=== PATIENT | male | born 1980 | race Two or more races ===

== ENCOUNTER 2025-06-14 05:13 | Inpatient (IN) | payer OTHER ==
[~2025-06-14] VITALS: Ht 177.8 cm; Wt 86.0 kg
--- NOTE | 2025-06-14 06:47 | ED.PDOC ---
SOB-HPI HPI Comments 44 year old male with no PMHx presents to the ED with a chief complaint of shortness of breath onset last night. Patient states he began experiencing shortness of breath, causing back pain. He noticed back pain worsened with deep breath, rates pain 7/10, slight improvement during assessment. Denies nausea, vomiting, fever, chills, chest pain, dizziness, headache, blurred vision, leg swelling, numbness/tingling, cough, cold, congestion, sore throat. No other symptoms or modifying factors present at this time. Chief Complaint: Shortness of Breath Time Seen by MD: 06:35 Reviewed notes: Medications, Allergies Information Source: Patient, Spouse Mode of Arrival: Ambulatory Severity: Moderate Timing: Hours Duration: Since onset Context: At Rest PE Risk Factors: None History of: None Prehospital treatment: None Modifying Factors: Nothing Associated Signs and Symptoms: Other (back pain) Past Medical History PAST MEDICAL HISTORY: Denies Surgical History: Denies all surgeries Family History Family History: Family hx of HTN Social History Smoker: Quit Greater Than 1 Year, Cigar Alcohol: Occasionally Drugs: Denies Drug Use Lives In: Home Constitutional: denies: chills, diaphoresis, fatigue, fever, malaise, sweats, weakness, others EENTM: denies: blurred vision, double vision, ear bleeding, ear discharge, ear drainage, ear pain, ear ringing, eye pain, eye redness, hearing loss, mouth pain, mouth swelling, nasal discharge, nose bleeding, nose congestion, nose pain, photophobia, tearing, throat pain, throat swelling, voice changes, others Respiratory: reports: shortness of breath; denies: cough, hemoptysis, orthopnea, SOB at rest, SOB with excertion, stridor, wheezing, others Cardiovascular: denies: chest pain, dizzy spells, diaphoresis, Dyspnea on exertion, edema, irregular heart beat, left arm pain, lightheadedness, palpitations, PND, syncope, others Gastrointestinal: denies: abdomen distended, abdominal pain, blood streaked bowels, constipated, diarrhea, dysphagia, difficulty swallowing, hematemesis, melena, nausea, poor appetite, poor fluid intake, rectal bleeding, rectal pain, vomiting, others Genitourinary: denies: burning, dysuria, flank pain, frequency, hematuria, incontinence, penile discharge, penile sore, pain, testicle pain, testicle swelling, urgency, others Neurological: denies: dizziness, fainting, headache, left sided numbness, left sided weakness, numbness, paresthesia, pre-existing deficit, right sided numbness, right sided weakness, seizure, speech problems, tingling, tremors, weakness, others Musculoskeletal: reports: back pain; denies: gout, joint pain, joint swelling, muscle pain, muscle stiffness, neck pain, others Integumetry: denies: bruises, change in color, change in hair/nails, dryness, laceration, lesions, lumps, rash, wounds, others Allergic/Immunocompromised: denies: Difficulty Healing, Frequent Infections, Hives, Itching, others Hematologic/Lymphatic: denies: anemia, blood clots, easy bleeding, easy bruising, swollen glands, others Endocrine: denies: excessive hunger, excessive sweating, excessive thirst, excessive urination, flushing, intolerance to cold, intolerance to heat, unexplained weight gain, unexplained weight loss, others Psychiatric: denies: anxiety, bipolar disorder, depression, hopeless, panic disorder, schizophrenia, sleepless, suicidal, others All Other Systems: Reviewed and Negative Physical Exam General Appearance: Moderate Distress HEENT: Normal ENT Inspection, Pharynx Normal, TMs Normal Neck: Full Range of Motion, Non-Tender, Normal, Normal Inspection Respiratory: Chest Non-Tender Cardiovascular: No Edema, No JVD, No Murmur, No Gallop, Normal Peripheral Pulses, Regular Rate/Rhythm Breast Exam: Deferred Gastrointestinal: No Organomegaly, Non Tender, No Pulsatile Mass, Normal Bowel Sounds, Soft Genitalia: Deferred Pelvic: Deferred Rectal: Deferred Extremities: No calf tenderness, Normal capillary refill, Normal inspection, Normal range of motion, Non-tender, No pedal edema Musculoskeletal : Apperance: Normal Neurologic: Alert, web development consultant II-XII nml as Tested, No Motor Deficits, Normal Affect, Normal Mood, No Sensory Deficits Cerebellar Function: Normal Reflexes: Normal Skin: Dry, Normal Color, Warm Lymphatic: No Adenopathy EKG EKG : Pulse Rate (adult): 85 [place]: Normal Cardiac Rhythm: NSR ST: Nonsp Was a procedure done? Was a procedure done?: No Differential Dx Differential Diagnosis: Asthma, Bronchitis, CHF, Other (Accelerated hypertension) X-Ray, Labs, Meds, VS Vital Signs Date Time Temp Pulse Resp B/P (MAP) Pulse Ox O2 Delivery O2 Flow Rate FiO2 06/14/25 09:09 85 06/14/25 08:35 98.1 83 17 181/125 (143) 99 98.1 06/14/25 08:34 181/125 06/14/25 07:41 84 17 98 Room Air 06/14/25 07:41 98.7 84 16 176/124 (141) 97 98.7 06/14/25 07:39 176/124 06/14/25 05:21 85 06/14/25 05:15 98.7 93 20 174/113 97 98.7 Lab Test 06/14/25 08:50 06/14/25 07:50 06/14/25 07:18 06/14/25 05:35 Range/Units Troponin I High Sensitivity Pending 5 </=54 ng/L D-Dimer, Quantitative < 0.19 0.0-0.49 mg/L FEU Urine Color Yellow Yellow Urine Clarity Clear Clear Urine pH 6.0 5.0-9.0 Urine Specific [place] 1.030 1.001-1.035 Urine Protein Trace H Negative Urine Ketones Negative Negative Urine Blood Negative Negative /uL Urine Nitrite Negative Negative Urine Bilirubin Negative Negative Urine Urobilinogen Normal Negative mg/dL Urine Leukocyte Esterase Negative Negative /uL Urine RBC 1 0 - 3 /hpf Urine Microscopic WBC 2 0-3 /HPF Urine Squamous Epithelial Cells Few <5 /hpf Urine Calcium Oxalate Crystals Few None Seen Urine Bacteria None seen None Seen /hpf Urine Mucus Few None Seen Urine Glucose Normal Normal mg/dL White Blood Count 7.1 4.4-10.8 10^3/uL Red Blood Count 5.31 4.5-5.90 10^6/uL Hemoglobin 16.5 13.5-17.5 g/dL Hematocrit 46.5 41.0-53.0 % Mean Corpuscular Volume 87.6 80.0-100.0 fL Mean Corpuscular Hemoglobin 31.1 28.0-32.0 pg Mean Corpuscular Hemoglobin Concent 35.5 32.0-36.0 g/dL Red Cell Distribution Width 13.0 11.8-14.3 % Platelet Count 193 140-450 10^3/uL Mean Platelet Volume 9.9 6.9-10.8 fL Neutrophils (%) (Auto) 64.4 37.0-80.0 % Lymphocytes (%) (Auto) 23.5 10.0-50.0 % Monocytes (%) (Auto) 9.5 0.0-12.0 % Eosinophils (%) (Auto) 1.8 0.0-7.0 % Basophils (%) (Auto) 0.8 0.0-2.0 % Neutrophils # (Auto) 4.6 1.6-8.6 10 ^3/uL Lymphocytes # (Auto) 1.7 0.4-5.4 10 ^3/uL Monocytes # (Auto) 0.7 0-1.3 10 ^3/uL Eosinophils # (Auto) 0.1 0-0.8 10 ^3/uL Basophils # (Auto) 0.1 0-0.2 10 ^3/uL Nucleated Red Blood Cells 0.1 % Sodium Level 141 136-145 mmol/L Potassium Level 4.1 3.5-5.1 mmol/L Chloride Level 105 98-107 mmol/L Carbon Dioxide Level 27 20-31 mmol/L Anion Gap 9 5-15 Blood Urea Nitrogen 12 9-23 mg/dL Creatinine 1.25 0.700-1.30 mg/dL Glomerular Filtration Rate Calc 72 >90 mL/min BUN/Creatinine Ratio 9.6 L 10.0-20.0 Serum Glucose 114 H 74-106 mg/dL Calcium Level 9.1 8.7-10.4 mg/dL B-Type Natriuretic Peptide 3.20 0-100 pg/mL Current Medications Medications (Trade) Dose Ordered Sig/Shaji Route Start Time Stop Time Status Last Admin Clonidine HCl (Catapres Tablet) 0.2 mg ONCE ONCE PO 06/14/25 07:45 06/14/25 07:46 DC 06/14/25 07:39 The patient's CBC and chemistry panel are within normal limits. The patient was initially hypertensive so was given clonidine 0.2 mg by mouth. Following the clonidine, the patient's blood pressure has actually increased to 181/125 The patient states that he feels no chest pain but just feel some discomfort. We are going to admit the patient to the hospitalist at this time The patient will receive aspirin here in the emergency department's IMPRESSION: No acute cardiopulmonary disease. Images Reviewed?: Images reviewed and evaluated by me Time of 1ST Reevaluation: 07:05 Reevaluation 1ST: Unchanged Patient Education/Counseling: Diagnosis, Treatment, Prognosis Family Education/Counseling: Diagnosis, Treatment, Prognosis SEPSIS Sepsis Screen Date sepsis recognized/suspect: Jun 14, 2025 Time Sepsis recognized/suspect: 521 Recent Procedure: No On Antibiotic Therapy: No Respiratory Rate >20: No Heart Rate >90: No Temp<36 C (96.8 F) or >38.3 C: No SBP <90 or MAP <65 mmHG: No New Acute Mental Status Change: No Is the patient on CPAP, BIPAP,: No Physician Orders Heplock Iv (06/14/25 06:39) Pulse Oximetry (06/14/25 06:39) Interactive Media Marketing Specialist (06/14/25 06:39) Blood Pressure (06/14/25 06:39) Chest Two Views Routine (06/14/25 06:39) Troponin-I Hs (06/14/25 08:32) Troponin-I Hs (06/14/25 10:32) Admit (06/14/25 09:05) Code Status (06/14/25 09:05) 2 Gm Sodium Diet (06/14/25 Breakfast) Sodium Chloride Lock (Saline Lock Ns) (06/14/25 14:00) Hydrocodone-Acet 5/325mg Tab ([place] (06/14/25 09:15) Ondansetron Hcl (Zofran) (06/14/25 09:15) Docusate Sodium Capsule (Colace Capsule) (06/14/25 09:15) Complete Blood Count (06/15/25 04:00) Comprehensive Metabolic Panel (06/15/25 04:00) Echo 2d Mode Cardiac Dop (06/14/25 09:05) Condition: Serious (06/14/25 09:05) Acetaminophen Tablet (Tylenol Tablet) (06/14/25 09:15) Nitroglycerin Sublingual (Ntrostat Subli (06/14/25 09:15) Morphine Sulfate Injection (06/14/25 09:15) Stat Ekg For Chest Pain (06/14/25 09:05) Notify Of Changes From Base (06/14/25 09:05) Corporate Investigator For 24 Hours (06/14/25 09:05) Emergency Dysrhythmia Protocol (06/14/25 09:05) Rhythm Strips Once Every Shift (06/14/25 09:05) Oxygen By Nasal Cannula (06/14/25 09:05) Lisinopril Tablet (Zestril Tablet) (06/14/25 10:00) Vital Signs Date Time Temp Pulse Resp B/P (MAP) Pulse Ox O2 Delivery O2 Flow Rate FiO2 06/14/25 09:09 85 06/14/25 08:35 98.1 83 17 181/125 (143) 99 98.1 06/14/25 08:34 181/125 06/14/25 07:41 84 17 98 Room Air 06/14/25 07:41 98.7 84 16 176/124 (141) 97 98.7 06/14/25 07:39 176/124 06/14/25 05:21 85 06/14/25 05:15 98.7 93 20 174/113 97 98.7 Laboratory Tests Test 06/14/25 05:35 White Blood Count 7.1 10^3/uL (4.4-10.8) Medications Medications Dose Ordered Sig/Shaji Route Start Time Stop Time Status Last Admin Dose Admin Clonidine HCl 0.2 mg ONCE ONCE PO 06/14/25 07:45 06/14/25 07:46 DC 06/14/25 07:39 Departure 1 Departure Time of Disposition: 09:05 Impression: Primary Impression: Accelerated hypertension Disposition: 09 ADMITTED INPATIENT Admit to: Tele Condition: Fair Critical Care Note Critical Care Time?: No Stability Stability form required: Yes Unstable for transfer: Telemetry monitoring (Telemetry monitoring required), ED Physician Assesment (Clinical assesment) Heart Score Heart Score: Heart Score Response (Comments) Value History N/A 0 EKG N/A 0 Age N/A 0 Risk Factors N/A 0 Troponin N/A 0 Total 0 I personally scribed for WINSTON WILLIS MD ([email or web address]) on 06/14/25 at 06:47. Electronically submitted by Jessica Paredes ([email or web address]). I personally scribed for WINSTON WILLIS MD ([email or web address]) on 06/14/25 at 07:33. Electronically submitted by Jessica Paredes ([email or web address]). WINSTON WILLIS MD Jun 14, 2025 06:47
[2025-06-14 07:06] LABS: Hematocrit 46.5 % (41.0-53.0); Hemoglobin 16.5 g/dL (13.5-17.5); Mean Corpuscular Hemoglobin 31.1 pg (28.0-32.0); Mean Corpuscular Volume 87.6 fL (80.0-100.0); Nucleated Red Blood Cells % 0.1 %
[2025-06-14 07:11] LABS: Chloride 105 mmol/L (98-107); Potassium 4.1 mmol/L (3.5-5.1); Sodium 141 mmol/L (136-145)
[2025-06-14 07:12] LABS: Anion Gap 9 (5-15); Carbon Dioxide 27 mmol/L (20-31)
[2025-06-14 07:13] LABS: Calcium 9.1 mg/dL (8.7-10.4)
[2025-06-14 07:17] LABS: BUN/Creatinine Ratio 9.6 (10.0-20.0); Blood Urea Nitrogen 12 mg/dL (9-23)
[2025-06-14 07:18] LABS: Glucose 114 mg/dL (74-106)
--- NOTE | 2025-06-14 07:31 | DVH ---
XY CHEST TWO VIEWS ROUTINE CLINICAL HISTORY: sob COMPARISON: None TECHNIQUE: Frontal and lateral view of the chest was obtained FINDINGS: Lines and Tubes: None Lungs: No focal consolidation. Pleura: No effusion. No pneumothorax. Cardiomediastinal contours: Unremarkable Bones: No acute osseous abnormality. IMPRESSION: No acute cardiopulmonary disease.
--- NOTE | 2025-06-14 07:33 | ECG ---
[facility] Test Date: 2025-06-14 Test Time: 05:21:55 Pat Name: MARIEL SHIELDS Department: Room: 0212T Gender: M Screenplay Writer: HIRAM : 1980 Requested By: EMERGENCY EMERGENCY Order Number: [id number] Reading MD: Chito Loya Measurements Intervals [place] Rate: 85 P: 38 IA: 155 QRS: 47 QRSD: 89 T: 45 QT: 363 QTc: 432 Interpretive Statements Sinus rhythm ST elev, probable normal early repol pattern Electronically Signed On 06-19-2025 20:24:45 PDT by Chito Loya Please click the below link to view image of tracing.
[2025-06-14 08:02] LABS: Urine Protein, UAD TRACE (Negative)
[2025-06-14] MEDS ORDERED: DOCUSATE SOD 100 MG CAP PO PRN ×2 (09:15→09:30)
[2025-06-14] MEDS ORDERED: ONDANSETRON HCL 4 MG/2 ML VIAL IV PRN ×2 (09:15→09:30)
[2025-06-14] MEDS ORDERED: ACETAMINOPHEN 325 MG TAB PO PRN (09:15)
[2025-06-14] MEDS ORDERED: NITROGLYCERIN 0.4 MG SL TAB SL PRN ×2 (09:15→09:30)
[2025-06-14] MEDS ORDERED: MORPHINE SULFATE INJ 2 MG/ml SYRG IV PRN (09:15)
[2025-06-14] MEDS ORDERED: HYDROcodone-ACET 5/325MG TAB PO PRN ×2 (09:15→09:30)
[2025-06-14] MEDS: hydrALAZINE HCL 20 MG/ML VL IV ONE (09:18)
[2025-06-14 09:21] VITALS: PULSE 74; RESP 18; O2SAT 96
--- NOTE | 2025-06-14 09:23 | DVHHP2 ---
History of Present Illness Reason for Visit: Shortness of breath History of Present Illness Germain Gorman is a 44-year-old male with no significant past medical history, who came to the hospital for shortness of breath and back pain. Patient states the shortness of breath and chest pain woke him up this morning. He st ates he has never had a problem like this before. He has not been to a primary care provider in years. While in the ER it was discovered that he was severely hypertensive with his blood pressure being 170-180's. Smoke: No ALCOHOL: occassional Drugs: None Lives: with Family Review of Systems Constitutional: No: Fever, Chills, Sweats, Weakness, Malaise, Other Eyes: No: Pain, Vision change, Conjunctivae inflammation, Eyelid inflammation, Other, Redness ENT: No: Ear pain, Ear discharge, Nose pain, Nose discharge, Nose congestion, Mouth pain, Mouth swelling, Throat pain, Throat swelling, Other Respiratory: Shortness of breath; No: Cough, Dry, SOB with excertion, Wheezing, Hemoptysis, Pleuritic Pain, Sputum, Wheezing, Other Cardiovascular: No: Chest Pain, Palpitations, Orthopnea, Paroxysmal Noc. Dyspnea, Edema, Lt Headedness, Other Gastrointestinal: No: Nausea, Vomiting, Abdominal Pain, Diarrhea, Constipation, Melena, Hematochezia, Other Genitourinary: No Dysuria, No Frequency, No Incontinence, No Hematuria, No Rete ntion, No Other Musculoskeletal: No: other, neck pain, shoulder pain, arm pain, back pain, hand pain, leg pain, foot pain Skin: No: Rash, Lesions, Jaundice, Bruising, Other Neurological: No: Weakness, Numbness, Incoordination, Change in speech, Confusion, Seizures, Other Allergies: Coded Allergies: NO KNOWN ALLERGIES (Unverified , 06/14/25) Exam Vital Signs Vital Signs Date Time Temp Pulse Resp B/P (MAP) Pulse Ox O2 Delivery O2 Flow Rate FiO2 06/14/25 08:35 98.1 83 17 181/125 (143) 99 98.1 06/14/25 07:41 Room Air General Appearance: Alert, Oriented X3, Cooperative, mild distress HEENT: Atraumatic, PERRLA Respiratory: Clear to auscultation, Normal air movement Cardiovascular: Regular rate, Normal S1, Normal S2, No murmurs Abdominal: Normal bowel sounds, Soft, No tenderness, No hepatospenomegaly Extremities: No clubbing, No cyanosis, No edema, Normal pulses, No tenderness/swelling Skin: No rashes, No breakdown, No significant lesion Neuro: Normal gait, Normal speech, Strength at 5/5 X4 ext Psych/Mental Status: Mental status NL, Mood NL Labs/Xrays Labs Test 06/14/25 08:50 06/14/25 07:50 06/14/25 07:18 06/14/25 05:35 Range/Units D-Dimer, Quantitative < 0.19 0.0-0.49 mg/L FEU Urine Color Yellow Yellow Urine Clarity Clear Clear Urine pH 6.0 5.0-9.0 Urine Specific [place] 1.030 1.001-1.035 Urine Protein Trace H Negative Urine Ketones Negative Negative Urine Blood Negative Negative /uL Urine Nitrite Negative Negative Urine Bilirubin Negative Negative Urine Urobilinogen Normal Negative mg/dL Urine Leukocyte Esterase Negative Negative /uL Urine RBC 1 0 - 3 /hpf Urine Microscopic WBC 2 0-3 /HPF Urine Squamous Epithelial Cells Few <5 /hpf Urine Calcium Oxalate Crystals Few None Seen Urine Bacteria None seen None Seen /hpf Urine Mucus Few None Seen Urine Glucose Normal Normal mg/dL White Blood Count 7.1 4.4-10.8 10^3/uL Red Blood Count 5.31 4.5-5.90 10^6/uL Hemoglobin 16.5 13.5-17.5 g/dL Hematocrit 46.5 41.0-53.0 % Mean Corpuscular Volume 87.6 80.0-100.0 fL Mean Corpuscular Hemoglobin 31.1 28.0-32.0 pg Mean Corpuscular Hemoglobin Concent 35.5 32.0-36.0 g/dL Red Cell Distribution Width 13.0 11.8-14.3 % Platelet Count 193 140-450 10^3/uL Mean Platelet Volume 9.9 6.9-10.8 fL Neutrophils (%) (Auto) 64.4 37.0-80.0 % Lymphocytes (%) (Auto) 23.5 10.0-50.0 % Monocytes (%) (Auto) 9.5 0.0-12.0 % Eosinophils (%) (Auto) 1.8 0.0-7.0 % Basophils (%) (Auto) 0.8 0.0-2.0 % Neutrophils # (Auto) 4.6 1.6-8.6 10 ^3/uL Lymphocytes # (Auto) 1.7 0.4-5.4 10 ^3/uL Monocytes # (Auto) 0.7 0-1.3 10 ^3/uL Eosinophils # (Auto) 0.1 0-0.8 10 ^3/uL Basophils # (Auto) 0.1 0-0.2 10 ^3/uL Nucleated Red Blood Cells 0.1 % Sodium Level 141 136-145 mmol/L Potassium Level 4.1 3.5-5.1 mmol/L Chloride Level 105 98-107 mmol/L Carbon Dioxide Level 27 20-31 mmol/L Anion Gap 9 5-15 Blood Urea Nitrogen 12 9-23 mg/dL Creatinine 1.25 0.700-1.30 mg/dL Glomerular Filtration Rate Calc 72 >90 mL/min BUN/Creatinine Ratio 9.6 L 10.0-20.0 Serum Glucose 114 H 74-106 mg/dL Calcium Level 9.1 8.7-10.4 mg/dL B-Type Natriuretic Peptide 3.20 0-100 pg/mL XY CHEST TWO VIEWS ROUTINE FINDINGS: Lines and Tubes: None Lungs: No focal consolidation. Pleura: No effusion. No pneumothorax. Cardiomediastinal contours: Unremarkable Bones: No acute osseous abnormality. IMPRESSION: No acute cardiopulmonary disease. SEPSIS Sepsis Screen Date sepsis recognized/suspect: Jun 14, 2025 Time Sepsis recognized/suspect: 521 Recent Procedure: No On Antibiotic Therapy: No Respiratory Rate >20: No Heart Rate >90: No Temp<36 C (96.8 F) or >38.3 C: No SBP <90 or MAP <65 mmHG: No New Acute Mental Status Change: No Is the patient on CPAP, BIPAP,: No Physician Orders Heplock Iv (06/14/25 06:39) Pulse Oximetry (06/14/25 06:39) Track Oiler (06/14/25 06:39) Blood Pressure (06/14/25 06:39) Chest Two Views Routine (06/14/25 06:39) Troponin-I Hs (06/14/25 08:32) Troponin-I Hs (06/14/25 10:32) Admit (06/14/25 09:05) Code Status (06/14/25 09:05) 2 Gm Sodium Diet (06/14/25 Breakfast) Sodium Chloride Lock (Saline Lock Ns) (06/14/25 14:00) Hydrocodone-Acet 5/325mg Tab ([place] 32 (06/14/25 09:15) Ondansetron Hcl (Zofran) (06/14/25 09:15) Docusate Sodium Capsule (Colace Capsule) (06/14/25 09:15) Complete Blood Count (06/15/25 04:00) Comprehensive Metabolic Panel (06/15/25 04:00) Echo 2d Mode Cardiac Dop (06/14/25 09:05) Condition: Serious (06/14/25 09:05) Acetaminophen Tablet (Tylenol Tablet) (06/14/25 09:15) Nitroglycerin Sublingual (Ntrostat Subli (06/14/25 09:15) Morphine Sulfate Injection (06/14/25 09:15) Stat Ekg For Chest Pain (06/14/25 09:05) Notify Of Changes From Base (06/14/25 09:05) City [place] For 24 Hours (06/14/25 09:05) Emergency Dysrhythmia Protocol (06/14/25 09:05) Rhythm Strips Once Every Shift (06/14/25 09:05) Oxygen By Nasal Cannula (06/14/25 09:05) Lisinopril Tablet (Zestril Tablet) (06/14/25 10:00) Vital Signs Date Time Temp Pulse Resp B/P (MAP) Pulse Ox O2 Delivery O2 Flow Rate FiO2 06/14/25 08:35 98.1 83 17 181/125 (143) 99 98.1 06/14/25 08:34 181/125 06/14/25 07:41 84 17 98 Room Air 06/14/25 07:41 98.7 84 16 176/124 (141) 97 98.7 06/14/25 07:39 176/124 06/14/25 05:21 85 06/14/25 05:15 98.7 93 20 174/113 97 98.7 Laboratory Tests Test 06/14/25 05:35 White Blood Count 7.1 10^3/uL (4.4-10.8) Medications Medications Dose Ordered Sig/Shaji Route Start Time Stop Time Status Last Admin Dose Admin Clonidine HCl 0.2 mg ONCE ONCE PO 06/14/25 07:45 06/14/25 07:46 DC 06/14/25 07:39 0.2 MG Assessment/Plan Assessment/Plan Assessment: Hypertensive emergency, Plan: Admit to Tele, ECHO, Antihypertensives, PRN antihypertensive, Consider cardiology consult based on ECHO results and if patient's symptoms do not improve, Plan discussed with: Patient, Spouse My Orders Orders - TERRY RAMIREZ Procedure Category Date Status Time Admit ADMIT 06/14/25 Verified 09:05 Code Status CODE 06/14/25 Verified 09:05 2 Gm Sodium Diet DIET 06/14/25 Verified Breakfast Sodium Chloride Lock PHA 06/14/25 Verified (Saline Lock Ns) 14:00 Hydrocodone-Acet PHA 06/14/25 Verified 5/325mg Tab ([place] 09:15 Ondansetron Hcl PHA 06/14/25 Verified (Zofran) 09:15 Docusate Sodium PHA 06/14/25 Verified Capsule (Colace 09:15 Complete Blood Count LAB 06/15/25 Verified 04:00 Comprehensive LAB 06/15/25 Verified Metabolic Panel 04:00 Echo 2d Mode Cardiac US 06/14/25 Verified DOP 09:05 Condition: Serious [facility] 06/14/25 Verified 09:05 Acetaminophen Tablet [facility] 06/14/25 Verified (Tylenol Tablet) 09:15 Nitroglycerin PHA 06/14/25 Verified Sublingual (Ntrostat 09:15 Morphine Sulfate PHA 06/14/25 Verified Injection 09:15 Stat Ekg For Chest [facility] 06/14/25 Verified Pain 09:05 Notify Md Of Changes [facility] 06/14/25 Verified From Base 09:05 City [place] For [facility] 06/14/25 Verified 24 Hours 09:05 Emergency Dysrhythmia [facility] 06/14/25 Verified Protocol 09:05 Rhythm Strips Once [facility] 06/14/25 Verified Every Shift 09:05 Oxygen By Nasal RT 06/14/25 Verified Cannula 09:05 Lisinopril Tablet [facility] 06/14/25 Verified (Zestril Tablet) 10:00 Date of Service: Jun 14, 2025 Billing Provider: TERRY RAMIREZ Common Visit Codes: [id number] INP/OBS CARE (MOD) TERRY RAMIREZ Jun 14, 2025 09:23
[2025-06-14] MEDS ORDERED: MORPHINE SULFATE 4 MG/ML SYR/VIAL IV PRN (10:00)
[2025-06-14] MEDS ORDERED: LISINOPRIL 5 MG TAB PO SCH (10:00)
[2025-06-14] MEDS: LISINOPRIL 5 MG TAB PO SCH (10:00)
[2025-06-14] MEDS ORDERED: SODIUM CHLOR 0.9% PF (SALINE LOCK) 10ML VIAL/SYR IV SCH (14:00)
[2025-06-14] MEDS: SODIUM CHLOR 0.9% PF (SALINE LOCK) 10ML VIAL/SYR IV SCH (14:05)
[2025-06-14 16:39] VITALS: BP 159/109; PULSE 90; RESP 22; TEMP 98; O2SAT 95
[2025-06-14] MEDS: ACETAMINOPHEN 325 MG TAB PO PRN (17:35)
[2025-06-14 21:00] VITALS: BP 136/97; PULSE 82; RESP 16; TEMP 97.6; O2SAT 96
[2025-06-14 22:16] VITALS: BP 138/95; PULSE 70; RESP 17; TEMP 98.8; O2SAT 95
[2025-06-15] VITALS (8 sets, daily range): BP systolic 127–164; BP diastolic 74–119; PULSE 70–104; RESP 15–18; TEMP 97.7–98.8; O2SAT 95–98
[2025-06-15 07:02] LABS: Hematocrit 43.9 % (41.0-53.0); Hemoglobin 15.3 g/dL (13.5-17.5); Mean Corpuscular Hemoglobin 30.7 pg (28.0-32.0); Mean Corpuscular Volume 88.2 fL (80.0-100.0); Nucleated Red Blood Cells % 0.1 %
[2025-06-15 07:20] LABS: Alanine Aminotransferase 32 U/L (7-40); Albumin 4.1 g/dL (3.2-4.8); Alkaline Phosphatase 87 U/L (46-116); Anion Gap 10 (5-15); BUN/Creatinine Ratio 10.3 (10.0-20.0); Blood Urea Nitrogen 12 mg/dL (9-23); Calcium 8.8 mg/dL (8.7-10.4); Carbon Dioxide 27 mmol/L (20-31); Chloride 104 mmol/L (98-107); Glucose 93 mg/dL (74-106); Potassium 4.1 mmol/L (3.5-5.1); Sodium 141 mmol/L (136-145); Total Protein 6.2 g/dL (5.7-8.2)
[2025-06-15 07:21] LABS: Bilirubin, Total 1.0 mg/dL (0.2-1.0)
[2025-06-15 11:15] LABS: Cholesterol 192 mg/dL (< 200)
[2025-06-15 11:16] LABS: HDL Cholesterol 37 mg/dL (40-59); Triglycerides 258 mg/dL (< 150)
[2025-06-15] MEDS: hydrALAZINE HCL 20 MG/ML VL IV PRN (12:02)
[2025-06-15] MEDS ORDERED: LISI-275 PO (13:53)
[2025-06-15] MEDS ORDERED: NIFE1TAB36 PO (13:53)
--- NOTE | 2025-06-15 13:54 | DVHDS2 ---
Discharge Summary Date of Admission Jun 14, 2025 at 09:05 Date of Discharge: Jun 15, 2025 Labs/Diagnostic Data: Laboratory Results Test 06/15/25 04:49 06/14/25 08:50 06/14/25 07:50 06/14/25 07:18 White Blood Count 6.7 10^3/uL (4.4-10.8) Red Blood Count 4.98 10^6/uL (4.5-5.90) Hemoglobin 15.3 g/dL (13.5-17.5) Hematocrit 43.9 % (41.0-53.0) Mean Corpuscular Volume 88.2 fL (80.0-100.0) Mean Corpuscular Hemoglobin 30.7 pg (28.0-32.0) Mean Corpuscular Hemoglobin Concent 34.8 g/dL (32.0-36.0) Red Cell Distribution Width 13.2 % (11.8-14.3) Platelet Count 172 10^3/uL (140-450) Mean Platelet Volume 9.9 fL (6.9-10.8) Neutrophils (%) (Auto) 67.9 % (37.0-80.0) Lymphocytes (%) (Auto) 20.3 % (10.0-50.0) Monocytes (%) (Auto) 9.4 % (0.0-12.0) Eosinophils (%) (Auto) 1.8 % (0.0-7.0) Basophils (%) (Auto) 0.6 % (0.0-2.0) Neutrophils # (Auto) 4.5 10 ^3/uL (1.6-8.6) Lymphocytes # (Auto) 1.4 10 ^3/uL (0.4-5.4) Monocytes # (Auto) 0.6 10 ^3/uL (0-1.3) Eosinophils # (Auto) 0.1 10 ^3/uL (0-0.8) Basophils # (Auto) 0 10 ^3/uL (0-0.2) Nucleated Red Blood Cells 0.1 % Sodium Level 141 mmol/L (136-145) Potassium Level 4.1 mmol/L (3.5-5.1) Chloride Level 104 mmol/L (98-107) Carbon Dioxide Level 27 mmol/L (20-31) Anion Gap 10 (5-15) Blood Urea Nitrogen 12 mg/dL (9-23) Creatinine 1.16 mg/dL (0.700-1.30) Glomerular Filtration Rate Calc 79 mL/min (>90) BUN/Creatinine Ratio 10.3 (10.0-20.0) Serum Glucose 93 mg/dL (74-106) Hemoglobin A1c 5.5 % A1C (<5.7) Calcium Level 8.8 mg/dL (8.7-10.4) Total Bilirubin 1.0 mg/dL (0.2-1.0) Aspartate Amino Transferase (AST) 22 U/L (13-40) Alanine Aminotransferase (ALT) 32 U/L (7-40) Alkaline Phosphatase 87 U/L (46-116) Total Protein 6.2 g/dL (5.7-8.2) Albumin 4.1 g/dL (3.2-4.8) Triglycerides Level 258 mg/dL (< 150) Cholesterol Level 192 mg/dL (< 200) LDL Cholesterol 134 mg/dL (< 100) HDL Cholesterol 37 mg/dL (40-59) Thyroid Stimulating Hormone (TSH) 3.62 uIU/mL (0.55-4.78) Troponin I High Sensitivity 5 ng/L (</=54) D-Dimer, Quantitative < 0.19 mg/L FEU (0.0-0.49) Urine Color Yellow (Yellow) Urine Clarity Clear (Clear) Urine pH 6.0 (5.0-9.0) Urine Specific M[place] 1.030 (1.001-1.035) Urine Protein Trace (Negative) Urine Ketones Negative (Negative) Urine Blood Negative /uL (Negative) Urine Nitrite Negative (Negative) Urine Bilirubin Negative (Negative) Urine Urobilinogen Normal mg/dL (Negative) Urine Leukocyte Esterase Negative /uL (Negative) Urine RBC 1 /hpf (0 - 3) Urine Microscopic WBC 2 /HPF (0-3) Urine Squamous Epithelial Cells Few /hpf (<5) Urine Calcium Oxalate Crystals Few (None Seen) Urine Bacteria None seen /hpf (None Seen) Urine Mucus Few (None Seen) Urine Glucose Normal mg/dL (Normal) Test 06/14/25 05:35 B-Type Natriuretic Peptide 3.20 pg/mL (0-100) Other Laboratory Tests 06/15/25 04:49 Brief Hx & Hospital Course: Hypertensive emergency headache weakness blurry vision pt's symptoms improved significantly, unexpectedly, and pt prefers to be discharged Condition at Discharge: Fair Final Diagnosis/Problems List see above Discharge Disposition: Home Discharge Instruct/Medications Diet: Cardiac 2g Na,low cholest Activity: No Restrictions, As Tolerated Scheduled Lisinopril (Lisinopril), 10 MG PO DAILY Nifedipine (Nifedipine ER), 30 MG PO BID Discharge Statement: "Patient was advised to return to the ER or call 911 if any headaches, dizziness, shortness of breath, chest pain, abdominal pain, bleeding, fevers, or worsening of medical condition. Patient was counseled about treatment plan, medications, possible side effects, patientverbalized understanding. All questions were answered to the best of my ability. This discharge took greater then 30 minutes in planning, reviewing documentation, counseling the patient, and discussing with other team members." ASSESSMENT ASSESSMENT Assessment Date of Service: Jun 15, 2025 Billing Provider: KELI GENAO DO Common Visit Codes: 62030-WRG/OBS DISCH DAY >30min KELI GENAO DO Jun 15, 2025 13:54
--- NOTE | 2025-06-16 09:43 | DVHSR ---
APPROVED REPORT EXAM: Two-dimensional and M-mode echocardiogram with Doppler and color Doppler. Blood Pressure: 131/91 mmHg INDICATION Hypertensive urgency RISK FACTORS Height: 70, Weight: 189 DIMENSIONS LVDd3.9 (3.8-5.7cm)LA (2D)3.9 (1.9-4.0cm)Aortic Root3.9 (2.0-3.7cm) LVDs2.6 (2.5-4.0cm)LA (MM) (1.9-4.0cm)Aortic Cusp Exc2.4 (1.5-2.0cm) EF (%) 64.0 (55-70%)Rt. Atrium3.9 (1.9-4.0cm)Asc. Aorta cm Mitral Valve MitralMitral Stenosis E wave0.49m/sMV Mean GR.mmHg A wave0.87m/sMV Peak GR.mmHg E/A ratio0.62D MVAcm2 DECEL [id number] 1/2 [id number] IVRTmsDop MVA3.80cm2 Aortic Valve Aortic ValveAortic Stenosis V10.96m/Ann Mean GR.3mmHg V21.17m/Ann Peak GR.5mmHg LVOT Diameter2.1 (1.8-2.4cm)Doppler AVA2.84cm2 Pulmonic Valve V20.99m/s Conclusion LV EF IS 70% AND IS NORMAL NORMAL VALVES NO EFFUSION NORMAL RV FUNCTION
== END 2025-06-15 18:11 | disposition home or self-care (01) | DRG 305 ==
LOC: ER 05:13 → OVERFLOW 09:05 → ER 09:08 → TELE-CENTR 22:13
PROVIDERS: ADMIT Internal Medicine; ATTEND Internal Medicine
DX: I16.1 Hypertensive emergency (principal); I10 Essential (primary) hypertension; Z82.49 Family history of ischemic heart disease and other diseases of the circulatory system; Z87.891 Personal history of nicotine dependence; R51.9 Headache, unspecified; H53.8 Other visual disturbances; R53.1 Weakness
CPT/HCPCS: 36415; 71046; 80048; 80053; 80061; 81001; 83036; 83880; 84443; 84484; 85025; 85379; 93005; 93306; 96374; G0378